=== PATIENT | male | born 1955 | race Caucasian/White ===

== ENCOUNTER 2023-12-25 18:12 | Emergency (ER) | payer MEDICARE, BC ==
[~2023-12-25] VITALS: Ht 180.3 cm; Wt 157.3 kg
[2023-12-25 21:44] LABS: EOSINOPHILS # (AUTO) 0.1 X10'3 (0-0.9); MEAN CORPUSCULAR HGB CONC 34.5 g/dL (33.0-36.5); WHITE BLOOD COUNT 14.8 X10'3 (4.5-11.0)
[2023-12-25 21:45] LABS: BASOPHILS # (AUTO) 0.1 X10'3 (0-0.2); BASOPHILS % (AUTO) 0.6 % (0-1); EOSINOPHILS % (AUTO) 0.4 % (0-6); HEMOGLOBIN 15.5 g/dl (14.0-17.9); LYMPHOCYTES # (AUTO) 0.9 X10'3 (1.1-4.8); LYMPHOCYTES % (AUTO) 6.1 % (21-51); MEAN CORPUSCULAR HEMOGLOBIN 34.7 PG (27.0-31.0); MEAN CORPUSCULAR VOLUME 100.6 FL (78-98); MONOCYTES % (AUTO) 6.6 % (2-12); NEUTROPHILS # (AUTO) 12.8 X10'3 (1.8-7.7); NEUTROPHILS % (AUTO) 86.3 % (42-75); PLATELET COUNT 171 X10'3 (140-440); RED BLOOD COUNT 4.47 X10'6 (4.70-6.10); RED CELL DISTRIBUTION WIDTH 13.5 % (11.5-14.5)
[2023-12-25 21:57] VITALS: BP 171/88; PULSE 76; RESP 18; TEMP 98.5; O2SAT 95
[2023-12-25 21:59] LABS: ALANINE AMINOTRANSFERASE 45 U/L (12-78); ALBUMIN 3.6 G/DL (3.4-5.0); ALKALINE PHOSPHATASE 156 IU/L (46-116); ANION GAP 8 (8-16); BILIRUBIN,TOTAL 1.2 MG/DL (0.1-1.0); BLOOD UREA NITROGEN 23 MG/DL (7-18); BUN/CREATININE RATIO 14.5 (10.0-20.0); CALCIUM 8.5 MG/DL (8.5-10.1); CHLORIDE 108 MMOL/L (99-107); CREATININE 1.59 MG/DL (0.60-1.10); GLUCOSE 135 MG/DL (70-104); SODIUM 140 MMOL/L (135-145); TOTAL PROTEIN 7.2 G/DL (6.4-8.2); eCRCL 48 ML/MIN; eGFR 44 ML/MIN
[2023-12-25 22:11] LABS: ASPARTATE AMINO TRANSFERASE 24 U/L (10-37); POTASSIUM 4.5 MMOL/L (3.5-5.1)
== END 2023-12-25 21:59 | disposition home or self-care (01) ==
LOC: ER 18:13
DX: N20.0 Calculus of kidney (principal)
CPT/HCPCS: 36415; 74176; 80053; 85025; 99284